=== PATIENT | male | born 1995 | race African-American/Black ===

== ENCOUNTER 2016-12-24 19:07 | Emergency (ER) | payer OTHER ==
[~2016-12-24] VITALS: Ht 175.3 cm; Wt 95.6 kg
[2016-12-24] MEDS ORDERED: AUGMENTIN875 MG PO (19:57)
[2016-12-24 20:32] VITALS: BP 148/98
== END 2016-12-24 20:38 | disposition home or self-care (01) ==
LOC: EME 19:07
PROC: 3E0234Z Introduction of Serum, Toxoid and Vaccine into Muscle, Percutaneous Approach (ICD-10-PCS; principal; 2016-12-24)
DX: S01.431A Puncture wound without foreign body of right cheek and temporomandibular area, initial encounter (principal); W54.0XXA Bitten by dog, initial encounter; Z23 Encounter for immunization
CPT/HCPCS: 99281; 99283

== ENCOUNTER 2016-12-26 14:00 | Emergency (ER) | payer OTHER ==
[~2016-12-26] VITALS: Ht 175.3 cm; Wt 94.6 kg
[~2016-12-26 14:00] MED LIST: AUGMENTIN875 MG PO
[2016-12-26 17:03] VITALS: BP 122/80
== END 2016-12-26 17:03 | disposition home or self-care (01) ==
LOC: EME 14:00
DX: S01.451D Open bite of right cheek and temporomandibular area, subsequent encounter (principal); W54.0XXD Bitten by dog, subsequent encounter; Z23 Encounter for immunization
CPT/HCPCS: 99281; 99283